=== PATIENT | female | born 1990 | race African-American/Black ===

== ENCOUNTER 2023-06-12 14:23 | Emergency (ER) | payer OTHER ==
[~2023-06-12] VITALS: Ht 157.5 cm; Wt 39.0 kg
[2023-06-12 14:39] VITALS: BP_SYST 141; PULSE 87; RESP 16; TEMP 97.7; O2SAT 98
[2023-06-12] MEDS ORDERED: IBUP-1969 PO (15:56)
== END 2023-06-12 16:24 | disposition home or self-care (01) ==
LOC: SED 14:23
DX: S69.91XA Unspecified injury of right wrist, hand and finger(s), initial encounter (principal); Z79.899 Other long term (current) drug therapy; W22.8XXA Striking against or struck by other objects, initial encounter; Y93.89 Activity, other specified; Y92.89 Other specified places as the place of occurrence of the external cause; Y99.8 Other external cause status
CPT/HCPCS: 99283